=== PATIENT | female | born 1985 | race Two or more races ===

== ENCOUNTER → 2016-09-16 | Day surgery (SDC) | payer BC ==
[~2016-09-16] VITALS: Ht 162.6 cm; Wt 68.0 kg
[~2016-09-16] MED LIST: CIP250T PO; FERR18TA2 PO; MIDAZOLAM HCL 1MG/1ML-2 ML VIAL ONE; ONDANSETRON HCL 4 MG/2 ML VIAL IV ONE; PROB1TAB2 PO; PROPOFOL 10 MG/ML 20 ML IV ONE; ceFAZolin 1GM/50ML D5W 100 ML IV ONE; ePHEDrine SULFATE 50 MG/ML AMP IV PRN; fentaNYL CITRATE 100 MCG/2 ML VL IV ONE; fentaNYL CITRATE 100 MCG/2 ML VL ONE; hydrALAZINE HCL 20 MG/ML VL IV PRN
[2016-09-16 13:20] VITALS: BP 119/77
== END | disposition home or self-care (01) ==
LOC: SUR 08:22
PROVIDERS: ATTEND Urology
DX: N20.0 Calculus of kidney (principal)
CPT/HCPCS: 36415; 50590; 84702; J0690; J2250; J2704; J3010